=== PATIENT | male | born 1975 | race African-American/Black ===

== ENCOUNTER 2017-01-19 05:39 | Day surgery (SDC) | payer OTHER ==
[~2017-01-19] VITALS: Ht 170.2 cm; Wt 87.5 kg
--- NOTE | ~2017-01-19 | H ---
[facility] [place] [address] HISTORY AND PHYSICAL Name: FANG CALIXTO Room #: 150-1 [facility]#: [id number] Admission: 01/19/17 Attend Phys: Edwin Norman MD Discharge: Date of : 71 Report #: [id number] THIS REPORT FOR: //name// CC: Edwin Polanco His procedure is scheduled for 01/19/2017. HISTORY OF PRESENT ILLNESS: The patient has difficulty breathing through his nose. He believes that he has broken his nose in the past. He has shortness of breath, secondary to lack of nasal airway. He gets frequent sinus infections. PAST MEDICAL HISTORY: Otherwise, significant for high blood pressure. ALLERGIES: He has no known drug allergies. PHYSICAL EXAMINATION: He has a deviated nasal septum to the right side anteriorly, and into the left nasal cavity. He does not have lot of swelling or drainage. His oropharynx and oral cavity were clear. IMPRESSION: Deviated nasal septum with nasal airway obstruction. PLAN: Nasal septoplasty. <ELECTRONICALLY SIGNED> By: Edwin Norman MD 01/19/17 0740 [id number] Edwin Norman MD /nt
--- NOTE | ~2017-01-19 | O ---
[facility] [place] [address] OPERATIVE REPORT Name: FANG CALIXTO Room #: 150-1 [facility]#: [id number] Admission: 01/19/17 Attend Phys: Edwin Norman MD Discharge: Date of : 71 Report #: [id number] THIS REPORT FOR: //name// CC: Edwin Arriagauri DATE OF SERVICE: 01/19/2017 PREOPERATIVE DIAGNOSIS: Deviated nasal septum with nasal airway obstruction. POSTOPERATIVE DIAGNOSIS: Deviated nasal septum with nasal airway obstruction. OPERATIVE PROCEDURE: Nasal septoplasty. ANESTHESIA: General by laryngeal mask. DESCRIPTION OF PROCEDURE: The patient was taken to the operating room and placed in the supine position. General anesthesia was induced by laryngeal mask. Once adequate general anesthesia was obtained, local nasal anesthesia was induced by submucoperichondrial injection of 1% lidocaine with 1:100,000 epinephrine and topical application of cocaine solution. The patient was then draped in a sterile manner. The patient had nasal septal deviation anteriorly to the right and along the floor and posteriorly on the left. A hemitransfixion incision was placed on the right side of the nose and the mucoperichondrium and mucoperiosteum was elevated off the septum. The cartilage was incised in front of the bony cartilaginous junction and a portion of cartilage and bone was removed from the midportion of the septum. The septal spur along the floor consisted of hypertrophic cartilage and a fracture of the maxillary crest. The cartilage was removed as a long strip and the maxillary crest was rongeured and infractured. There was also a fracture posteriorly near the vomer and this was rongeured as well. After these maneuvers, the septum sat more in the midline. The hemitransfixion incision was then closed with 4-0 chromic suture and a 4-0 plain mattress suture was placed as well. The patient tolerated procedure well. Blood loss approximately 10 mL. The patient was then awoken to the recovery room in stable condition for postoperative monitoring. By: 0824 1238 Edwin Norman MD /brandi
--- NOTE | ~2017-01-19 | EKG ---
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
[~2017-01-19 05:39] MED LIST: AMLODIPINE BESY10 MG PO; COLACE100 MG PO; FLONASE 0.05%50 MCG NASAL; HYDROXYZINE HCL50 MG PO; NEURONTIN 300300 M1 PO; OXYCODONE-ACET1 EACH PO; PIROXICAM20 MG PO; ZANAFLEX4 MG PO
[2017-01-19 07:05] VITALS: BP 137/88
[2017-01-19] MEDS ORDERED: KEFLEX500 MG PO (08:27)
[2017-01-19] MEDS ORDERED: HYDROCODONE-APA1 TA1 PO (08:27)
[2017-01-19 08:43] VITALS: BP 137/88
== END 2017-01-19 09:10 | disposition home or self-care (01) ==
LOC: OR 05:39 → TBA 05:39 → OR 09:10
DX: J34.2 Deviated nasal septum (principal); J34.89 Other specified disorders of nose and nasal sinuses; I10 Essential (primary) hypertension; F41.9 Anxiety disorder, unspecified; G47.33 Obstructive sleep apnea (adult) (pediatric); F17.210 Nicotine dependence, cigarettes, uncomplicated
CPT/HCPCS: 50010; 50101; 50386; 50398; 50426; 56524; 56528; 62110; 62900; 64037; 70005